=== PATIENT | male | born 1980 | race American Indian/Alaskan Native ===

== ENCOUNTER 2017-08-16 00:18 | Emergency (ER) | payer OTHER ==
[2017-08-16] MEDS ORDERED: TYLENOL ONE (00:29)
[2017-08-16 00:31] VITALS: BP 135/88
[2017-08-16] MEDS ORDERED: TYLENOL PO ONE (00:32)
[2017-08-16] MEDS ORDERED: MOTRIN PO ONE (02:02)
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
== END 2017-08-16 02:25 | disposition home or self-care (01) ==
LOC: ED 00:18
DX: S39.012A Strain of muscle, fascia and tendon of lower back, initial encounter (principal); S13.4XXA Sprain of ligaments of cervical spine, initial encounter; F17.200 Nicotine dependence, unspecified, uncomplicated; F12.10 Cannabis abuse, uncomplicated; V49.59XA Passenger injured in collision with other motor vehicles in traffic accident, initial encounter; Y93.89 Activity, other specified; Y92.89 Other specified places as the place of occurrence of the external cause; Y99.8 Other external cause status
CPT/HCPCS: 99282